=== PATIENT | female | born 1980 | race Caucasian/White ===

== ENCOUNTER 2021-09-17 22:32 | Emergency (ER) | payer BC ==
[2021-09-17] MEDS: Aspirin 81 MG Tab.Chew PO ONE (23:10)
[2021-09-17] MEDS: Sodium Chloride 0.9% 10 ML Syringe FLUSH PRN (23:32)
== END 2021-09-18 00:23 | disposition home or self-care (01) ==
LOC: JD.ED 22:32
DX: R07.89 Other chest pain (principal); E66.9 Obesity, unspecified; Z68.31 Body mass index [BMI] 31.0-31.9, adult; Z88.0 Allergy status to penicillin; Z28.310 Unvaccinated for COVID-19; Z87.891 Personal history of nicotine dependence
CPT/HCPCS: 36415; 71045; 80053; 83735; 84484; 84702; 85025; 85379; 85610; 93005; 99285; A9270; J3490